=== PATIENT | male | born 1980 | race African-American/Black ===

== ENCOUNTER 2023-12-10 07:43 | Day surgery (SDC) | payer OTHER ==
[2023-11-29 13:33] VITALS: BMI 35.4
[2023-12-10] MEDS ORDERED: ACETAMINOPHEN 325 MG TABLET (FP) PO PRN (07:52)
[2023-12-10] MEDS ORDERED: ONDANSETRON 4 MG/2 ML VIAL IVPUSH PRN (07:52)
[2023-12-10] MEDS ORDERED: oxyCODONE HCL 5 MG TABLET PO PRN ×2 (07:52)
[2023-12-10] MEDS ORDERED: BUPIVACAINE HCL/EPINEPHRINE/PF 30 ML VIAL IJ ONE (07:58)
[2023-12-10] MEDS ORDERED: LACTATED RINGERS SOLUTION 1,000 ML IV SCH (08:00)
[2023-12-10] MEDS ORDERED: ACETAMINOPHEN INJECTION 100 ML IVPB ONE (08:32)
[2023-12-10] MEDS ORDERED: DEXAMETHASONE SOD PHOSPHATE/PF 10 MG/ML SDV ONE (08:32)
[2023-12-10] MEDS ORDERED: BUPIVACAINE HCL/PF 0.5% (5 MG/ML) 30 ML VIAL IJ ONE (08:32)
[2023-12-10] MEDS ORDERED: MIDAZOLAM HCL 2 MG/2 ML SINGLE DOSE VIAL ONE (08:32)
[2023-12-10] MEDS ORDERED: PROPOFOL 40 ML ONE (09:09)
[2023-12-10] MEDS ORDERED: TRANEXAMIC ACID 1000 MG/10 ML VIAL ONE (09:14)
[2023-12-10] MEDS: BUPIVACAINE 0.25% /EPI 1:200,000 10 ML VIAL INF ONE (09:26)
[2023-12-10] MEDS ORDERED: PROPOFOL 20 ML ONE (10:00)
[2023-12-10] MEDS ORDERED: LABETALOL HCL 5 MG/1 ML (100MG/20 ML VIAL) ONE (10:07)
[2023-12-10 12:04] VITALS: PULSE 71; RESP 16; TEMP 98.4
[2023-12-10 12:07] VITALS: BP 133/76
== END 2023-12-10 11:55 | disposition home or self-care (01) ==
LOC: FASU 07:43
PROVIDERS: ATTEND Orthopaedic Surgery
PROC: 0RNK4ZZ Release Left Shoulder Joint, Percutaneous Endoscopic Approach (ICD-10-PCS; principal; 2023-12-10 09:26)
PROC: 0RNK4ZZ Release Left Shoulder Joint, Percutaneous Endoscopic Approach (ICD-10-PCS; 2023-12-10 09:26)
DX: M75.122 Complete rotator cuff tear or rupture of left shoulder, not specified as traumatic (principal); M75.22 Bicipital tendinitis, left shoulder; M65.862 Other synovitis and tenosynovitis, left lower leg; S43.432A Superior glenoid labrum lesion of left shoulder, initial encounter; M75.52 Bursitis of left shoulder; X58.XXXA Exposure to other specified factors, initial encounter; Y92.9 Unspecified place or not applicable; Y93.9 Activity, unspecified
CPT/HCPCS: 94760; J0131